=== PATIENT | male | born 1950 | race Caucasian/White ===

== ENCOUNTER 2020-01-27 09:51 | Day surgery (SDC) | payer MEDICAID, MEDICARE ==
[~2020-01-27 09:51] MED LIST: Lidocaine 0.5% 50 ML SDV ONE; Lidocaine 1% with EPINEPHrine 1:100,000 50 ML MDV ONE; Midazolam 1 MG/ML 2 ML SDV ONE; Propofol 200 MG/20 ML SDV ONE; fentaNYL 100 MCG/2 ML SDV ONE
[2020-01-27] MEDS ORDERED: Acetaminophen 500 MG Tab PO ONE (10:08)
[2020-01-27] MEDS ORDERED: Dextrose 5%-Lactated Ringers 1,000 ML IV SCH (10:15)
[2020-01-27] MEDS ORDERED: ceFAZolin 2 GM in Premix Bag 1 BAG IV ONE (10:15)
[2020-01-27] MEDS ORDERED: Ketorolac 60 MG/2 ML SDV ONE (12:23)
[2020-01-27] MEDS ORDERED: fentaNYL 100 MCG/2 ML SDV IVPUSH ONE (13:00)
[2020-01-27] MEDS ORDERED: Acetaminophen/oxyCODONE 325-5 MG Tab PO PRN (13:30)
--- NOTE | 2020-02-01 10:58 | OR ---
DATE OF PROCEDURE: 01/27/2020 SURGEON: Tiago Rodgers MD PREOPERATIVE DIAGNOSIS: Right carpal tunnel syndrome. POSTOPERATIVE DIAGNOSIS: Right carpal tunnel syndrome. OPERATIVE PROCEDURE: Right carpal tunnel release ([id number]). ANESTHESIA: IV block plus sedation. INDICATIONS FOR PROCEDURE: A 69-year-old male presenting with clinically-evident bilateral carpal tunnel syndrome. The right side is somewhat more affected than the left. The patient has a quite extensive arthritis involving both wrists as well and plan is to proceed with a right carpal tunnel release. Potential risks of the procedure including bleeding, infection, injury to the median nerve and its branches as well as incomplete relief of symptoms was gone over. With the patient's extensive arthritis, both him and the family member present were made aware that this may not entirely relieve his symptoms as there is probably some concurrently symptomatic arthritic disease. DETAILS OF PROCEDURE: The patient was taken to the operating room and placed in a supine position. IV sedation was administered after which an IV block affecting the right forearm and hand was placed and those areas then prepped and draped. A standard right carpal tunnel incision was made and carried down through the skin and subcutaneous tissue. The transverse carpal ligament was then identified and divided from that point distally onto the palm of hand until there was complete relief of any pressure on the median nerve. This was extended proximally somewhat as well. Care was taken to maintain an ulnar orientation when compared to the underlying median nerve during the division so as to minimize the chances of nerve branch injuries. It was notable that the transverse carpal ligament was quite strikingly thickened and retracted under considerable tension upon its division. The median nerve at this point appeared to be intact and no further problems were noted. The incision was closed with some 4-0 Vicryl stitch deep and a 4-0 Prolene skin stitch. Dressing was applied. The patient was taken to the recovery room in satisfactory condition. At this point, we will see the patient back in roughly 10 days for suture removal. He would like to wait until after the season in early February to have the second side released. Tiago Rodgers MD /[id number]
== END 2020-01-27 14:20 | disposition home or self-care (01) ==
LOC: JP.SDS 09:51
PROVIDERS: ATTEND Surgery
DX: G56.01 Carpal tunnel syndrome, right upper limb (principal); J44.9 Chronic obstructive pulmonary disease, unspecified
CPT/HCPCS: 64721; A9270; J0690; J1885; J2001; J2250; J2704; J3010; J7121

== ENCOUNTER 2020-12-19 12:38 | Emergency (ER) | payer MEDICARE | END 2020-12-19 14:07 | disposition left against medical advice (07) | LOC: JP.ED 12:38 | DX: Z53.21 Procedure and treatment not carried out due to patient leaving prior to being seen by health care provider (principal) ==